=== PATIENT | female | born 1985 | race Caucasian/White ===

== ENCOUNTER 2017-11-10 19:02 | Emergency (ER) | payer SELFPAY ==
[~2017-11-10] VITALS: Ht 165.1 cm; Wt 101.9 kg
[2017-11-10 19:03] VITALS: BP 111/73
== END 2017-11-10 20:22 | disposition left against medical advice (07) ==
LOC: ED 20:16
DX: O26.891 Other specified pregnancy related conditions, first trimester (principal); R10.2 Pelvic and perineal pain; Z3A.00 Weeks of gestation of pregnancy not specified
CPT/HCPCS: 99281